=== PATIENT | male | born 1980 | race Hispanic/Latino ===

== ENCOUNTER 2018-11-08 01:48 | Emergency (ER) | payer SELFPAY ==
[2018-11-08] MEDS ORDERED: Ondansetron PF 4 MG/2 ML Vial ONE (02:13)
[2018-11-08] MEDS ORDERED: Morphine 4 MG/ML VIAL ONE (02:13)
[2018-11-08 02:21] LABS: #Eosinphils 0.2 thou/uL (0.0-0.7); #Lymphocytes 3.3 thou/uL (1.20-3.40); #Monocytes 0.7 thou/uL (0.11-0.59); #Neutrophils 5.6 thou/uL (1.40-6.50); %Basophils 0.5 % (0.0-1.0); %Eosinophils 1.7 % (0.0-10.0); %Lymphocytes 33.8 % (21.0-51.0); %Monocytes 6.9 % (0.0-10.0); %Neutrophils 57.2 % (42.0-75.0); Hemoglobin 14.7 g/dL (14.0-18.0); Mean Corpuscular HGB CONC 33.3 g/dL (32.0-36.0); Mean Corpuscular Hemoglobin 32.3 pg (27.0-31.0); Mean Platelet Volume 10.6 fL (7.4-10.4); Platelet Count 186 thou/uL (130-400); RBC Distribution Width 11.1 % (11.5-14.5); Red Blood Cell (RBC) Count 4.56 mill/uL (4.70-6.10); White Blood Cell (WBC) Count 9.8 thou/uL (4.8-10.8)
[2018-11-08 02:47] LABS: ALT (SGPT) 104 U/L (8-55); AST (SGOT) 63 U/L (5-34); Albumin 4.5 g/dL (3.5-5.0); Alkaline Phosphatase 88 U/L (40-150); Anion Gap 16 mmol/L (10-20); BUN (Urea Nitrogen) 13 mg/dL (8.9-20.6); Bilirubin, Total 0.3 mg/dL (0.2-1.2); Calc. Creatinine Clearance 0 mL/min (70-130); Calcium 9.4 mg/dL (7.8-10.44); Carbon Dioxide 23 mmol/L (22-29); Chloride 105 mmol/L (98-107); Estimated GFR-MDRD Greater than 90; Globulin 3.3 g/dL (2.4-3.5); Glucose 135 mg/dL (70-105); Lipase 22 U/L (8-78); Potassium 3.9 mmol/L (3.5-5.1); Protein, Total 7.8 g/dL (6.0-8.3); Sodium 140 mmol/L (136-145)
[2018-11-08] MEDS ORDERED: Mag-Al 1200 mg/1200 mg/30 ML UDCUP ONE (03:00)
[2018-11-08] MEDS ORDERED: Lidocaine Viscous Sol 2% 15 ml UD Cup ONE (03:00)
[2018-11-08 04:02] LABS: Bilirubin Negative (Negative); Blood, Urine Negative (Negative); Clarity Clear (Clear); Glucose, Urine (Dipstick) Normal (Negative); Leukocyte Negative Leu/uL (Negative); Nitrite Negative (Negative); Protein, Urine (Dipstick) Negative (Neg-Trace); Urobilinogen Normal mg/dL (Less than 2)
--- NOTE | 2018-11-08 08:07 | ULT ---
PRELIMINARY REPORT/[facility]/EMERGENCY AFTER HOURS PROCEDURE: PROCEDURE INFORMATION: Exam: US Abdomen Limited, Right Upper Quadrant Exam date and time: 11/08/2018 3:12 AM Clinical history: 38 years old, male; Abdominal pain; Localized; Right upper quadrant (ruq) TECHNIQUE: Imaging protocol: Real-time ultrasound of the abdomen with image documentation. Examination was focus ed on the right upper quadrant. COMPARISON: No relevant prior studies available. FINDINGS: Liver: Hepatic steatosis. Gallbladder: Sonographic Pineda sign negative. Cholelithiasis/Gallbladder sludge . No gallbladder wall thickening or pericholecystic fluid. Common bile duct: See Right Kidney Finding. Pancreas: Visualized pancreas is unremarkable. Right kidney: Mild distention of the right renal pelvis may signify mild hydronephrosis. No discernib le calyceal dilatation. IMPRESSION: 1. Cholelithiasis/gallbladder sludge. No cholecystitis. 2. Mild distention of the right renal pelvis may signify mild hydronephrosis. No discernible calyceal dilatation. Thank you for allowing us to participate in the care of your patient. Dictated and Authenticated by: Jose Eduardo Davis MD 11/08/2018 3:40 AM Central Time ([place] & [place]) FINAL REPORT GALLBLADDER ULTRASOUND: Date: 11/08/18 FINDINGS/IMPRESSION: Echogenic material in the gallbladder lumen consistent with dense sludge, sludge balls, or small ston es. Mild dilatation of right renal pelvis is noted. Liver is echogenic consistent with steatosis. I am in agreement with the preliminary report issued by [facility]. POS: JUSTICE
== END 2018-11-08 04:27 | disposition home or self-care (01) ==
LOC: ERS 01:48
DX: K80.20 Calculus of gallbladder without cholecystitis without obstruction (principal)
CPT/HCPCS: 76705; 80053; 81003; 83690; 85025; 96361; 96374; 96375; J2270; J2405